=== PATIENT | male | born 1995 | race African-American/Black ===

== ENCOUNTER 2020-03-21 00:19 | Emergency (ER) | payer SELFPAY ==
--- NOTE | 2020-03-21 02:39 | Event Note ---
ED Screening Note Date of service: 03/21/20 Time: 02:38 ED Screening Note: This initial assessment/diagnostic orders/clinical plan/treatment(s) is/are subject to change based on patients health status, clinical progression and re- assessment by fellow clinical providers in the ED. Further treatment and workup at subsequent clinical providers discretion. Patient/guardian urged not to elope from the ED as their condition may be serious if not clinically assessed and managed. Initial orders include: This is a 24-year-old male he states that around 6 PM yesterday he fell off his skating board onto his right shoulder he since then complaining of right shoulder pain and inability to move his arm. He denies any head injury no loss of consciousness no neck or back pain. Abrasion is noted to his right elbow. He is able to move his fingers positive radial pulse cap refill 1 to 2 seconds. X-ray of the right shoulder ordered
[2020-03-21] MEDS ORDERED: HYDROcodone/ACETAMINOPHEN 5-325 MG TAB PO ONE (03:01)
[2020-03-21] MEDS ORDERED: IBUPROFEN 800 MG TAB PO ONE (03:01)
--- NOTE | 2020-03-21 03:07 | Emergency Department Report ---
ED Upper Extremity Inj HPI - General Chief Complaint: Shoulder Injury Stated Complaint: RT SHOULDER DISLOCATED/FALL Time Seen by Provider: 03/21/20 02:57 Source: patient Mode of arrival: Ambulatory Limitations: No Limitations - History of Present Illness Initial Comments: 24-year-old male presents to ED following fall from skateboard at approximately 6 PM. Patient is reporting right shoulder pain. Patient states "I think I dislocated my shoulder." He denies any numbness or tingling. States tetanus up-to-date. Complaint: Injury to:: right, shoulder -: This evening Other Extremity Injury: Shoulder: Right Other Injuries: none Place: outdoors Improves With: immobilization Worsens With: movement of extremity Context: fall Associated Symptoms: denies: weakness, numbness - Related Data Previous Rx's Medication Instructions Recorded Last Taken Type HYDROcodone/APAP 5-325 [[place] 1 each PO Q6HR PRN #10 tablet 03/21/20 Unknown Rx 5/325] Naproxen [Naprosyn] 500 mg PO BID #20 tablet 03/21/20 Unknown Rx Allergies Allergy/AdvReac Type Severity Reaction Status Date / Time No Known Allergies Allergy Unverified 03/21/20 02:31 ED Review of Systems ROS: Stated complaint: RT SHOULDER DISLOCATED/FALL Other details as noted in HPI Comment: All other systems reviewed and negative Musculoskeletal: as per HPI Neurological: denies: weakness, numbness, paresthesias ED Past Medical Hx - Past Medical History Previous Medical History?: No - Surgical History Past Surgical History?: No - Social History Smoking Status: Never Smoker Substance Use Type: None - Medications Home Medications: Home Medications Medication Instructions Recorded Confirmed Last Taken Type HYDROcodone/APAP 5-325 [[place] 1 each PO Q6HR PRN #10 tablet 03/21/20 Unknown Rx 5/325] Naproxen [Naprosyn] 500 mg PO BID #20 tablet 03/21/20 Unknown Rx ED Physical Exam - General Limitations: No Limitations General appearance: alert, in no apparent distress - Head Head exam: Present: atraumatic, normocephalic - Eye Eye exam: Present: normal appearance, EOMI - ENT ENT exam: Present: mucous membranes moist - Neck Neck exam: Present: normal inspection - Respiratory Respiratory exam: Present: normal lung sounds bilaterally. Absent: respiratory distress - Cardiovascular Cardiovascular Exam: Present: normal rhythm, bradycardia - GI/Abdominal GI/Abdominal exam: Present: soft. Absent: distended, tenderness - Extremities Exam Extremities exam: Present: other (Deformity noted to right clavicle; no deformity noted to shoulder; abrasion to right elbow, however no swelling, nontender, ROM intact for the right elbow; right wrist nontender, no swelling) - Neurological Exam Neurological exam: Present: alert, oriented X3. Absent: motor sensory deficit - Psychiatric Psychiatric exam: Present: normal affect, normal mood - Skin Skin exam: Present: warm, dry, intact, normal color ED Course Vital Signs 03/21/20 03/21/20 02:29 03:56 Temperature 98.3 F Pulse Rate 55 L 69 Respiratory 18 15 Rate Blood Pressure 133/73 Blood Pressure 116/69 [Left] O2 Sat by Pulse 100 98 Oximetry ED Medical Decision Making - Radiology Data Radiology results: report reviewed, image reviewed - Medical Decision Making 24-year-old male with right clavicle fracture. Patient placed in sling. He has no neuro deficits on exam. Outpatient Ortho follow-up advised. Prescriptions given. Return precautions given. - Differential Diagnosis Fracture, sprain Critical care attestation.: If time is entered above; I have spent that time in minutes in the direct care of this critically ill patient, excluding procedure time. ED Disposition Clinical Impression: Closed right clavicular fracture Disposition: TO HOME OR SELFCARE Is pt being admited?: No Condition: Stable Instructions: Clavicle Fracture, Ficf-as-Cihl Prescriptions: Naproxen [Naprosyn] 500 mg PO BID #20 tablet HYDROcodone/APAP 5-325 [[place] 5/325] 1 each PO Q6HR PRN #10 tablet PRN Reason: Pain Referrals: SAMINA HIRSCH MD [Staff Physician] - 2-3 Days Time of Disposition: 03:47
--- NOTE | 2020-03-21 03:42 | XRay Report ---
RIGHT SHOULDER 3 VIEWS INDICATION / CLINICAL INFORMATION: right shoulder injury COMPARISON: None available. FINDINGS: BONES / JOINT(S): There is a fracture of the mid right clavicle which is displaced. No significant ar thritis. The AC joint and glenohumeral joint are maintained. SOFT TISSUES: No significant abnormality. ADDITIONAL FINDINGS: None. Signer Name: Darrel Lagos MD Signed: 03/21/2020 3:38 AM Workstation Name: [id number]
[2020-03-21 03:57] VITALS: BP 116/69
== END 2020-03-21 03:57 | disposition home or self-care (01) ==
LOC: ED 00:19
DX: S42.021A Displaced fracture of shaft of right clavicle, initial encounter for closed fracture (principal); Z79.899 Other long term (current) drug therapy; X58.XXXA Exposure to other specified factors, initial encounter; Y93.89 Activity, other specified; Y92.89 Other specified places as the place of occurrence of the external cause; Y99.8 Other external cause status
CPT/HCPCS: 99283